=== PATIENT | female | born 1975 | race Caucasian/White ===

== ENCOUNTER 2017-01-20 17:45 | Emergency (ER) | payer OTHER ==
[2017-01-20 18:04] VITALS: BP 119/90
[2017-01-20] MEDS ORDERED: Fluorescein Sodium TOPICAL* 1 MG TEST ONE (18:10)
[2017-01-20] MEDS ORDERED: BSS OPTH.SOL* BTL ONE (18:10)
--- NOTE | 2017-01-20 18:28 | UC ---
Eye Complaint HPI - HPI Summary HPI Summary: While removing contact lenses last night, felt sudden scratch, blinked, and could not find L contact. Thinks it could be under her eyelid, looked around for it last night but couldn't find it. Today upper L eyelid is very swollen and eye slightly irritated. Denies photophobia, visual problems, or eye pain. - History of Current Complaint Chief Complaint: UC Stated Complaint: EYE COMPLAINT Time Seen by Provider: 01/20/17 18:02 Hx Obtained From: Patient Hx Last Menstrual Period: current ?: No Onset/Duration: Sudden Onset Timing: Constant Severity Initially: Mild Severity Currently: Mild Location of Injury: Eye Lid (upper) Aggravating Factor(s): Nothing Alleviating Factor(s): Nothing Associated Signs And Symptoms: Positive: Drainage (Clear). Negative: Photophobia, Vision Impairment Bilateral - Allergies/Home Medications Allergies/Adverse Reactions: Allergies Allergy/AdvReac Type Severity Reaction Status Date / Time No Known Allergies Allergy Verified 01/20/17 17:59 Home Medications: Home Medications NK [No Home Medications Reported] 01/20/17 [History Confirmed 01/20/17] PMH/Surg Hx/FS Hx/Imm Hx Previously Healthy: Yes - Surgical History Surgical History: None - Family History Known Family History: Negative: Blood Disorder - Social History Lives: With Family Alcohol Use: Occasionally Substance Use Type: None Smoking Status (MU): Never Smoked Tobacco - Immunization History Most Recent Influenza Vaccination: none Review of Systems Constitutional: Negative Skin: Negative Eyes: Other - eye swelling ENT: Negative Respiratory: Negative Cardiovascular: Negative Gastrointestinal: Negative Genitourinary: Negative Motor: Negative Neurovascular: Negative Musculoskeletal: Negative Neurological: Negative Psychological: Negative All Other Systems Reviewed And Are Negative: Yes Physical Exam Triage Information Reviewed: Yes Appearance: Well-Appearing, No Pain Distress, Well-Nourished Vital Signs: Initial Vital Signs Temp 98.2 F 01/20/17 18:00 Pulse 60 01/20/17 18:00 Resp 16 01/20/17 18:00 BP 119/90 01/20/17 18:00 Pulse Ox 99 01/20/17 18:00 Eye Exam: Other - fluorescein dye test negative for uptake, no contact lens/FB noted on penlight or fluorescein exam. Unable to tea upper lid due to swelling. Eyes: Positive: Conjunctiva Clear, Discharge - clear ENT Exam: Normal ENT: Positive: Normal ENT inspection, Hearing grossly normal, Pharynx normal, TMs normal Dental Exam: Normal Neck exam: Normal Neck: Positive: Supple, Nontender, No Lymphadenopathy Respiratory Exam: Normal Respiratory: Positive: Chest non-tender, Lungs clear, Normal breath sounds, No respiratory distress, No accessory muscle use Cardiovascular Exam: Normal Cardiovascular: Positive: RRR, No Murmur Musculoskeletal Exam: Normal Neurological Exam: Normal Psychological Exam: Normal Skin Exam: Normal Eye Complaint Course/Dx - Differential Dx/Diagnosis Provider Diagnoses: L eyelid swelling Discharge - Discharge Plan Condition: Stable Disposition: HOME Referrals: Kirill Moses MD [Medical Doctor] - 2 Days Additional Instructions: I did not find any corneal abrasions or contact lenses on your exam. I recommend you allow the eye to rest without putting in contacts or medications until it is feeling completely normal. If you have worsening symptoms, or if you do not feel more or less back to normal within about 2 days, please follow up with the pin drafter listed here.
== END 2017-01-20 18:27 | disposition home or self-care (01) ==
LOC: UCEAST 17:45
DX: H02.844 Edema of left upper eyelid (principal)
CPT/HCPCS: 99201; A9270-GY; G0463